=== PATIENT | male | born 1965 | race Two or more races ===

== ENCOUNTER 2016-12-22 12:21 | Emergency (ER) | payer MEDICAID ==
[~2016-12-22] VITALS: Ht 170.2 cm; Wt 114.0 kg
[2016-12-22] MEDS ORDERED: SODIUM CHLORIDE FLUSH 10ML SYR IVF ONE (13:30)
[2016-12-22] MEDS ORDERED: PLEASE ENTER ALLERGIES MC SCH ×2 (13:30)
[2016-12-22] MEDS ORDERED: LORazepam 2 MG/ML, 1ML IVPush ONE (13:30)
[2016-12-22] MEDS ORDERED: ENALAPRILAT 1.25 MG/ML, 2ML IV ONE (13:30)
[2016-12-22] MEDS ORDERED: ENALAPRILAT 1.25 MG/ML, 2ML ONE (13:31)
[2016-12-22] MEDS ORDERED: LORazepam 2 MG/ML, 1ML ONE (13:32)
[2016-12-22 13:52] LABS: HEMATOCRIT 47.2 % (39.2-51.8); HEMOGLOBIN 15.6 g/dL (13.7-18.0)
[2016-12-22 14:04] LABS: BLOOD UREA NITROGEN 15 mg/dL (7-18)
[2016-12-22 14:11] LABS: IS PT STATUS REG ER OR PRE ER? YES
[2016-12-22 14:18] VITALS: BP 175/100
== END 2016-12-22 14:31 | disposition home or self-care (01) ==
LOC: ED 14:25
DX: I10 Essential (primary) hypertension (principal); R51 Headache; E11.9 Type 2 diabetes mellitus without complications
CPT/HCPCS: 36415; 70450; 71010; 80048; 82040; 83880; 84484; 85025; 93005; 96374; 99283; 99285